=== PATIENT | male | born 1975 | race Caucasian/White ===

== ENCOUNTER 2016-06-20 22:02 | Emergency (ER) ==
[2016-06-20 22:12] VITALS: BP 131/76; TEMP 97.8; BMI 29.5
[2016-06-20] MEDS ORDERED: DECADRON 4 MG/ML SDV IM STA (22:17)
[2016-06-20] MEDS ORDERED: TORADOL IM STA (22:17)
[2016-06-20] MEDS ORDERED: KEFLEX PO STA (22:17)
[2016-06-20] MEDS ORDERED: CLEOCIN PO STA (22:17)
--- NOTE | 2016-06-20 22:20 | ED.PDOC ---
General ED Provider: Dr. LUIS ARMANDO FORBES Chief Complaint: Bite Stated Complaint: saw a insect bite 2-3 days ago on the right forearm, yesterday it had head so i lanced it with blade, today is is red and hot Time Seen by Physician: 22:18 Mode of Arrival: Walk-In Information Source: Patient Nursing and Triage Documentation Reviewed and Agree: Yes Skin Complaint Exam - Skin/Soft Tissue Complaint/Exam Symptoms Are: Still present Timing: Constant Initial Severity: Moderate Current Severity: Mild Character: Reports: Redness, Swelling, Raised, Painful Aggravating: Reports: Touch Alleviating: Reports: None Associated Signs and Symptoms: Reports: Tenderness, Red streaks. Denies: Fever , Chills, Itching, Drainage, Bruising, Joint swelling Related Surgical History: Reports: None Recent Exposure to Others w/Similar Symptoms: No Skin Findings: Present: Erythema, Induration Differential Diagnoses: Cellulitis Review of Systems - Review Of Systems Constitutional: Reports: No symptoms Eyes: Reports: No symptoms Ears, Nose, Mouth, Throat: Reports: No symptoms Respiratory: Reports: No symptoms Cardiac: Reports: No symptoms GI: Reports: No symptoms : Reports: No symptoms Musculoskeletal: Reports: No symptoms Skin: Reports: Lesions Neurological: Reports: No symptoms Endocrine: Reports: No symptoms Hematologic/Lymphatic: Reports: No symptoms All Other Systems: Reviewed and Negative Past Medical History - Past Medical History Previously Healthy: No Endocrine: Reports: None Cardiovascular: Reports: None Respiratory: Reports: None Hematological: Reports: None Gastrointestinal: Reports: None Genitourinary: Reports: None Neuro/Psych: Reports: None Musculoskeletal: Reports: None Cancer: Reports: None - Surgical History General Surgical History: Reports: None - Family History Family History: Reports: None - Social History Smoking Status: Current every day smoker Smoking Cessation Counseling Time: > 3 min - 10 min Hx Substance Use: Yes (marijuana) Alcohol Screening: Occasionally - Immunizations Tetanus Shot up to Date: Yes Physical Exam - Physical Exam Appearance: Well-appearing, No pain distress, Well-nourished Eyes: ZACK, EOMI, Conjunctiva clear ENT: Ears normal, Nose normal, Oropharynx normal Respiratory: Airway patent, Breath sounds clear, Breath sounds equal, Respirations nonlabored Cardiovascular: RRR, Pulses normal, No rub, No murmur GI/: Soft, Nontender, No masses, Bowel sounds normal, No Organomegaly Musculoskeletal: Normal strength, ROM intact, No edema, No calf tenderness Skin: Warm (rt forearm, red swollen area, 3/4 cm. ), Dry, Normal color Neurological: Sensation intact, Motor intact, Reflexes intact, Cranial nerves intact, Alert, Oriented Psychiatric: Affect appropriate, Mood appropriate Critical Care Note - Critical Care Note Total Time (mins): 0 Course - Course Orders, Labs, Meds: Orders Category Date Time Status Cephalexin [Keflex] MEDS 06/20/16 22:17 Stat 500 mg PO ONCE STA Clindamycin HCl [Cleocin] MEDS 06/20/16 22:17 Stat 300 mg PO ONCE STA Dexamethasone 4 mg/ml Inj [Decadron 4 mg/ml Sdv] MEDS 06/20/16 22:17 Stat 4 mg IM ONCE STA Ketorolac Tromethamine [Toradol] MEDS 06/20/16 22:17 Stat 30 mg IM ONCE STA Medications Generic Name Dose Route Start Last Admin Trade Name Freq PRN Reason Stop Dose Admin Cephalexin 500 mg 06/20/16 22:17 Keflex PO 06/20/16 22:18 ONCE STA Clindamycin HCl 300 mg 06/20/16 22:17 Cleocin PO 06/20/16 22:18 ONCE STA Dexamethasone Sodium Phosphate 4 mg 06/20/16 22:17 Decadron 4 Mg/Ml Sdv IM 06/20/16 22:18 ONCE STA Ketorolac Tromethamine 30 mg 06/20/16 22:17 Toradol IM 06/20/16 22:18 ONCE STA Vital Signs: Temp Pulse Resp BP Pulse Ox 06/20/16 22:03 97.8 F 82 20 131/76 97 Departure - Departure Time of Disposition: 22:40 Disposition: HOME SELF-CARE Discharge Problem: Cellulitis Qualifiers: Site of cellulitis: extremity Site of cellulitis of extremity: upper extremity Laterality: right Qualifier Code: (L03.113) Cellulitis of right upper limb Instructions: Cellulitis (ED) Condition: Stable Pt referred to PMD for follow-up: Yes Additional Instructions: Tylenol prn If the swelling redness gets bigger needs to come back Prescriptions: Cephalexin [Keflex] 500 mg PO Q12HR #20 capsule Clindamycin HCl 300 mg PO TID #15 capsule Home Medications: Ambulatory Orders Cephalexin [Keflex] 500 mg PO Q12HR #20 capsule 06/20/16 Clindamycin HCl 300 mg PO TID #15 capsule 06/20/16 Disposition Discussed With: Patient, Family
== END 2016-06-20 23:00 | disposition home or self-care (01) ==
LOC: ED 22:02
DX: L03.113 Cellulitis of right upper limb (principal); F17.210 Nicotine dependence, cigarettes, uncomplicated
CPT/HCPCS: 96372; 99282